=== PATIENT | female | born 1970 | race Caucasian/White ===

== ENCOUNTER → 2022-08-08 11:31 | Outpatient (CLI) | payer OTHER, SELFPAY ==
--- NOTE | ~2022-08-08 | XR_ITS ---
XR foot RT min 3V DATE: 08/08/2022 11:42 INDICATION: Right foot injury TECHNIQUE: 4 views COMPARISON: None FINDINGS: Mild osteoarthritis at the first metatarsophalangeal joint. Mild posterior calcaneal enthesopathy. No fracture, dislocation, periosteal reaction or bone destruction. IMPRESSION: Mild osteoarthritis at first metatarsophalangeal joint Reviewed, dictated and finalized at location A. ITAL INTERN
== END ==
PROVIDERS: PCP Emergency Medicine; Visit Provider Emergency Medicine
DX: M19.071 Primary osteoarthritis, right ankle and foot (principal)
CPT/HCPCS: 73630

== ENCOUNTER 2022-08-16 10:51 | Day surgery (SDC) | payer OTHER, SELFPAY ==
[2022-08-11 11:19] VITALS: BMI 23.2
[2022-08-11 11:54] VITALS: BMI 22.7
[2022-08-16 11:45] VITALS: BP 129/90; PULSE 74; RESP 16; TEMP 37.2; O2SAT 99
--- NOTE | 2022-08-16 12:22 | WPDANESEPPF ---
Anes - Initial Pre Proc Eval Procedure: Operation Date: 08/16/22 13:00 Proposed Procedures p Screening Colonoscopy - Neel Gardiner MD Date/Time: 08/16/22 12:22 Surgeon: Neel Gardiner MD Pre Op Diagnosis: Neoplasm Screening Patient Data Age: 51 Gender: F Height: 1.68 m Weight: 65.7 kg Allergies Allergy/AdvReac Type Severity Reaction Status Date / Time naproxen Allergy Intermediate Hives Verified 08/16/22 11:42 Penicillins Allergy Intermediate Hives Verified 08/16/22 11:42 sulfamethizole Allergy Intermediate Hives Verified 08/16/22 11:42 Sulfa (Sulfonamide Allergy Mild HIVES Verified 08/16/22 11:42 Antibiotics) Home Medications Medication Instructions Recorded Confirmed Type benzonatate 100 mg capsule 100 mg PO TID PRN cough #20 caps 05/10/22 08/11/22 Rx ibuprofen 600 mg tablet 600 mg PO TID #45 tabs 08/08/22 08/16/22 Rx Patient hx anesthesia problems: none Family hx anesthesia problems: none Results Review: All pre-operative results and documents have been reviewed as part of the pre-operative evaluation. [facility] Surgical History Surgical History (Updated 08/16/22 @ 12:23 by Darren Packer MD) History of endometrial ablation Family History Family History Mother Diabetes mellitus Hypertension Family history of rheumatoid arthritis Family history of malignant neoplasm of cervix Social History Social History Smoking status: Never smoker Second hand tobacco smoke exposure: No Alcohol intake: current Drinks per week: 2 Substance use: current Substance use type: marijuana Last use: 4 TIMES A WEEK Living arrangements: alone Gender identity (if verbalized by the patient): Female Anes - Eval Final PreProcedure Day of Procedure 08/16/22 12:22 Patient weight: normal Heart: regular rate and rhythm Lungs: clear to auscultation Airway: Mallampati scale class II Neurological: alert and oriented Last oral intake: >/= 8 hours ASA classification: II Emergent: no Anesthetic plan: proceed Anesthesia type and monitoring: general GIVS and standard monitoring Results Review: All pre-operative results and documents have been reviewed as part of the pre-operative evaluation. Informed Consent: The patient's anesthetic plan and its attendant risks and benefits were discussed with the patient/family/POA. Questions were solicited and answers provided to the satisfaction of the patient/family/POA.
[2022-08-16] MEDS: LACTATED RINGERS 1,000 ML 150 ML IV CONT (12:45)
--- NOTE | 2022-08-16 13:01 | PM.HPGS ---
History of Present Illness History of Present Illness Consent: Risks, benefits, and alternatives have been discussed and questions answered. Patient agrees to proceed with procedure. Chief complaint: Neoplasm Screening Narrative: Ayleen Clayton is a 51 year old female here for screening colonoscopy, had one years ago. Review of Systems Constitutional: Constitutional: Denies headache(s) and Denies weakness Eyes: Eyes: Denies blurry vision ENT: Reports Normal hearing present, Denies headache(s) and Denies neck pain Cardiovascular: Cardiovascular: Denies chest pain and Denies dyspnea Respiratory: Respiratory: Denies dyspnea Gastrointestinal: Gastrointestinal: Reports no additional gastrointestinal complaints Genitourinary: Genitourinary: Denies dysuria Musculoskeletal: Musculoskeletal: Denies neck pain Integumentary/Breasts: Skin/Breast: Denies dry skin Neurologic: Reports Normal hearing present, Denies headache(s) and Denies weakness Psychiatric: Psychiatric: Denies anxiety Endocrine: Endocrine: Denies change in body appearance Hematologic/Lymphatic: Hematologic/Lymphatic: Denies easy bleeding Allergic/Immunologic: Allergic/Immunologic: Denies urticaria PMFSH Surgical History Surgical History (Updated 08/16/22 @ 12:23 by Darren Packer MD) History of endometrial ablation Family History Family History Mother Diabetes mellitus Hypertension Family history of rheumatoid arthritis Family history of malignant neoplasm of cervix Social History Social History Smoking status: Never smoker Second hand tobacco smoke exposure: No Alcohol intake: current Drinks per week: 2 Substance use: current Substance use type: marijuana Last use: 4 TIMES A WEEK Living arrangements: alone Gender identity (if verbalized by the patient): Female Meds Home Medications and Allergies Home Medications Medication Instructions Recorded Confirmed Type benzonatate 100 mg capsule 100 mg PO TID PRN cough #20 caps 05/10/22 08/11/22 Rx ibuprofen 600 mg tablet 600 mg PO TID #45 tabs 08/08/22 08/16/22 Rx Allergies Allergy/AdvReac Type Severity Reaction Status Date / Time naproxen Allergy Intermediate Hives Verified 08/16/22 11:42 Penicillins Allergy Intermediate Hives Verified 08/16/22 11:42 sulfamethizole Allergy Intermediate Hives Verified 08/16/22 11:42 Sulfa (Sulfonamide Allergy Mild HIVES Verified 08/16/22 11:42 Antibiotics) Vital Signs Vital Signs - 24 hr 08/16/22 11:45 Temperature 99 F Pulse Rate 74 Respiratory Rate 16 Blood Pressure 129/90 Pulse Oximetry 99 Oxygen Delivery Room Air Exam Const: General: comfortable and no acute distress HENMT: Face/Nose/Sinus: Normal nares present Eyes: General: appearance normal, both eyes and all related structures Neck: Neck: no JVD Resp: Auscultation: clear to auscultation bilaterally Cardio: Rate: regular rate Rhythm: regular rhythm GI: Inspection: non-distended GI Palp: Yes Soft to palpation Skin: General skin exam: normal color Neuro: General: gait normal Speech: normal speech Extrem: General: normal to inspection Psych: Mental Status: mental status grossly normal Assessment and Plan Assessment and plan (1) Encounter for screening for malignant neoplasm of colon: Code(s): Z12.11 - Encounter for screening for malignant neoplasm of colon Status: Acute Assessment and Plan: colonoscopy
[2022-08-16 13:19] VITALS: BP 100/55; PULSE 64; RESP 13; O2SAT 99
[2022-08-16 13:29] VITALS: BP 108/69; PULSE 72; RESP 13; O2SAT 99
--- NOTE | 2022-08-16 13:31 | WPDANESPN ---
Anes - Prog Note Post-Op Date/Time: 08/16/22 13:31 Cardiovascular status: normal Respiratory status: normal Airway patency: baseline Mental status: baseline Post-Op hydration status: normal Vital Signs: Last Vital Signs Temp 37.2 C 08/16/22 11:45 Pulse 64 08/16/22 13:19 Resp 13 08/16/22 13:19 BP 100/55 L 08/16/22 13:19 Pulse Ox 99 08/16/22 13:19 O2 Del Method Room Air 08/16/22 13:19 Pain Score (VAS): 0/10 I/O: Intake & Output 08/15/22 08/16/22 08/16/22 23:59 07:59 15:59 Intake Total 600 Balance 600 Patient Feedback: Patient satisfied with anesthetic care.
[2022-08-16 13:39] VITALS: BP 124/72; PULSE 66; RESP 14; O2SAT 100
== END 2022-08-16 13:57 | disposition home or self-care (01) ==
PROVIDERS: PCP Emergency Medicine; Visit Provider Internal Medicine Gastroenterology
PROC: 0DJD8ZZ Inspection of Lower Intestinal Tract, Via Natural or Artificial Opening Endoscopic (ICD-10-PCS; CPT 45378; principal; 2022-08-16 13:00)
DX: Z12.11 Encounter for screening for malignant neoplasm of colon (principal)
CPT/HCPCS: 45378

== ENCOUNTER 2022-10-11 08:19 | Outpatient (CLI) | payer OTHER, SELFPAY ==
--- NOTE | ~2022-10-11 | MM_ITS ---
EXAMINATION: MM screening [facility] BI w [place] HISTORY: Screening mammogram TECHNIQUE: Craniocaudal and mediolateral oblique 3-D tomosynthesis images were obtained and synthetic 2-D images were generated. CAD analysis was submitted and interpreted. COMPARISON: 09/14/2018, 11/03/2016, 04/30/2015 BREAST PARENCHYMAL COMPOSITION: There are scattered areas of fibroglandular density. FINDINGS: No suspicious mass, calcification, or architectural distortion are identified in either lina ast to suggest malignancy. There has been no suspicious interval change. IMPRESSION: 1. No mammographic evidence of malignancy. 2. Recommend routine screening mammography in one year. BI-RADS Category 1: Negative Reviewed, dictated and finalized at location A. HT RADIO OPERATOR
== END 2022-10-11 08:20 | disposition home or self-care (01) ==
PROVIDERS: PCP Emergency Medicine; Visit Provider Emergency Medicine
DX: Z12.31 Encounter for screening mammogram for malignant neoplasm of breast (principal)
CPT/HCPCS: 77063; 77067

== ENCOUNTER 2023-02-18 08:26 | Emergency (ER) | payer OTHER, SELFPAY ==
--- NOTE | 2023-02-18 08:33 | ED.SKABFB ---
HPI - Skin/Abscess/Foreign Bdy General Chief complaint: Skin/Abscess/Foreign Body Stated complaint: Rash Time Seen by Provider: 02/18/23 08:56 Source: patient, RN notes reviewed and old records reviewed Mode of arrival: ambulatory Limitations: no limitations History of Present Illness HPI narrative: 52 year old female who presents to express care with complaints of spreading rash on her body since the of this month and she did see her PCP on the 13 of February and she received a prednisone taper for which she has been taking but rash continues to spread. Patient reports that her and herself have been renovating home and thinks she might of come into contact with something that caused rash. Patient reports that rash is itchy and she has used some prescription cortisone ointment and also has taken Benadryl orally with no relief. Patient reports no difficulty with her breathing or any swallowing difficulty, respirations even and nonlabored. MD complaint: rash Onset (ago): day(s) (8) Location: generalized Treatments prior to arrival: OTC topical medication, Benadryl and other (prednisone taper) Related Data Home Medications Medication Instructions Recorded Confirmed clotrimazole-betamethasone 1 1 applic topical BID 02/18/23 02/18/23 %-0.05 % topical cream Allergies Allergy/AdvReac Type Severity Reaction Status Date / Time naproxen Allergy Intermediate Hives Verified 02/18/23 08:46 Penicillins Allergy Intermediate Hives Verified 02/18/23 08:46 sulfamethizole Allergy Intermediate Hives Verified 02/18/23 08:46 Sulfa (Sulfonamide Allergy Mild HIVES Verified 02/18/23 08:46 Antibiotics) Review of Systems Review of Systems: CONSTITUTIONAL: Denies fever, chills, or sweats. CARDIOVASCULAR: Denies chest pain, palpitations, or edema. RESPIRATORY: Denies cough or dyspnea. SKIN: Reports diffuse red maculopapular rash with no vesicle formation on abdomen,lower back, neck, and under bilateral breasts and inner right forearm,itchy MUSCULOSKELETAL: Denies joint pain or myalgia. NEUROLOGIC: Denies headache, numbness, or weakness. All systems reviewed & are unremarkable except as noted in HPI and below PMFSH Past Medical History Medical History Hx of migraines Surgical History Surgical History History of endometrial ablation Family History Family History Mother Diabetes mellitus Hypertension Family history of rheumatoid arthritis Family history of malignant neoplasm of cervix Social History Social History (Updated 02/19/23 @ 08:08 by Narcisa Baumann NP) Smoking status: Never smoker Second hand tobacco smoke exposure: No Alcohol intake: current Drinks per week: 2 Substance use: current Substance use type: marijuana Last use: 4 TIMES A WEEK Living arrangements: with family Occupation/Education: occupation Gender identity (if verbalized by the patient): Female Comments At time of signature, agree with nursing past medical, surgical, social and family history. There is no relevant family history pertinent to the presenting complaint Exam Narrative: GENERAL: Well-appearing, well-nourished, and in no acute distress. HEAD: Normocephalic, atraumatic. EYES: PERRLA, conjunctivae clear, and EOMI. ENT: Mucous membranes moist. Oropharynx without edema, erythema or lesions. NECK: Supple. No lymphadenopathy CHEST: Clear to auscultation. No respiratory distress.SAO2 100% on room air HEART: Regular rate and rhythm. SKIN: Warm, dry.? Patches of red maculopapular rash without vesicles to neck, lower abdomen,under breasts,lower back and right forearm is itchy NEURO:? Alert and oriented x3. PSYCH: Normal mood and affect Course Course Emergency Course: Patient is aware of diagnosis, understands and agre
[2023-02-18 08:38] VITALS: BP 148/77; PULSE 77; RESP 14; TEMP 36.8; O2SAT 100
[2023-02-18] MEDS: methylPREDNISolone ACETATE 80 MG/ML VIAL IM (09:15)
== END 2023-02-18 09:34 | disposition home or self-care (01) ==
PROVIDERS: Emergency Provider Registered Nurse; PCP Emergency Medicine
DX: L25.9 Unspecified contact dermatitis, unspecified cause (principal); F12.90 Cannabis use, unspecified, uncomplicated
CPT/HCPCS: 96372; 99213; G0463; J1040

== ENCOUNTER 2023-03-15 11:40 | Outpatient (CLI) | payer OTHER, SELFPAY ==
[2023-03-15 16:15] LABS: Kit Draw Collected
== END 2023-03-15 11:41 | disposition home or self-care (01) ==
LOC: ANHGOSHLAB 11:42
PROVIDERS: PCP Family Medicine; Visit Provider Family Medicine
DX: Z00.00 Encounter for general adult medical examination without abnormal findings (principal); F41.8 Other specified anxiety disorders; L50.9 Urticaria, unspecified
CPT/HCPCS: 36415

== ENCOUNTER 2024-11-07 11:57 | Outpatient (CLI) | payer OTHER, SELFPAY ==
--- NOTE | ~2024-11-07 | XR_ITS ---
EXAMINATION: [id number]_[id number]_CR DATE: 11/07/2024 12:13 INDICATION: Neck pain. TECHNIQUE: 3 views of cervical spine on 4 radiographs were obtained. COMPARISON: None. FINDINGS: There is kyphosis of cervical spine. Vertebral body heights are normal. There is mildly dec reased disc height at C3-C4, C4-C5, and C5-C6, moderately decreased disc height at C6-C7, and mildly decreased disc height at C7-T1. There is multilevel severe facet joint osteoarthritis. There may be f usion of facet joints at C5-C6 and C6-C7. There is mild central canal stenosis at C3-C4. No preverteb ral soft tissue swelling. IMPRESSION: 1. Moderate cervical spondylosis. Reviewed, dictated and finalized at location A. DRAWER
== END 2024-11-07 11:58 | disposition home or self-care (01) ==
LOC: GOSHIMG 11:58
PROVIDERS: PCP Student in an Organized Health Care Education/Training Program; Visit Provider Student in an Organized Health Care Education/Training Program
DX: M47.892 Other spondylosis, cervical region (principal)
CPT/HCPCS: 72040